=== PATIENT | female | born 1940 | race Caucasian/White ===

== ENCOUNTER → 2018-08-11 10:46 | Outpatient (CLI) | payer MEDICARE, SELFPAY ==
--- NOTE | 2018-08-11 10:48 | DI.RAD.S_ITS ---
PROCEDURE: XR LUMBAR SPINE MIN 4V INDICATIONS: Lower back pain TECHNIQUE: 4 views of the lumbar spine were acquired. COMPARISON: None. FINDINGS: Bones: 5 nonrib-bearing vertebrae are present. There is normal bony alignment. No vertebral body compression fractures. There is a moderately severe degree of degenerative disc disease along the middle and lower thirds of the lumbosacral spine, including disc height reduction and and ligamentous laxity when combined with facet osteoarthritis that is moderate to moderately severe along this region. This is most prominent at L4-5 where grade 1 anterolisthesis of L4 is present on L5. No suspicious bony lesions. Soft tissues: Overlying bowel gas pattern is normal. No suspicious soft tissue calcifications. Oblique images: No pars defects. IMPRESSION: Moderately severe degenerative disc disease and facet osteoarthritis over the entirety of the lumbosacral spine and most prominent over the middle and lower thirds. Facet osteoarthritis combines with degenerative disc disease to allow anterolisthesis grade 1 of L4 on L5 from ligamentous laxity. Dictated by: Irineo Barker M.D. on 08/11/2018 at 12:44 Approved by: Irineo Barker M.D. on 08/11/2018 at 12:46
== END ==
PROVIDERS: PCP Family Medicine; Visit Provider Physical Medicine & Rehabilitation
DX: M47.817 Spondylosis without myelopathy or radiculopathy, lumbosacral region (principal); M48.02 Spinal stenosis, cervical region; M54.5 Low back pain; M51.37 Other intervertebral disc degeneration, lumbosacral region; M47.816 Spondylosis without myelopathy or radiculopathy, lumbar region
CPT/HCPCS: 72110

== ENCOUNTER → 2018-12-26 13:44 | Outpatient (CLI) | payer MEDICARE, SELFPAY ==
--- NOTE | 2018-12-26 13:46 | DI.MRI.S_ITS ---
PROCEDURE: MR LUMBAR SPINE WO CON INDICATIONS: lower back pain TECHNIQUE: Noncontrast sagittal T1 spin echo and T2 fast echo, sagittal STIR, axial T1 and T2 fast spin echo through the lumbar spine. In cases with scoliosis, additional coronal T2 fast spin echo may be performed. COMPARISON: MR, LUMBAR SPINE W&W/O CONTRAST, 06/01/2006, 13:21. [facility], CR, XR LUMBAR SPINE MIN 4V, 08/11/2018, 10:52. FINDINGS: Image quality: Excellent. Alignment and Curvature: There is mild L4-L5 anterolisthesis. Bone Marrow: Multiple, benign intraosseous hemangiomas within T12, L1, L2, L4 and L5 vertebral bodies. Mild reactive endplate changes noted adjacent to the L4 and L5 discs. No acute vertebral body compression fractures. Spinal Cord: Conus medullaris terminates at the L1 level. Visualized cord demonstrates normal signal and size. Paraspinous Soft Tissues: No paravertebral masses. L1-L2: Loss of disc signal. No central stenosis. No neural foraminal narrowing. No neural compression. L2-L3: Loss of disc signal. Mild loss of disc height. Mild, diffuse disc bulge. Mild facet hypertrophy. Mild narrowing of the central canal. Mild bilateral neural foraminal narrowing. No neural compression. L3-L4: Loss of disc signal and height. Mild, diffuse disc bulge. Moderate bilateral facet hypertrophy. Mild ligamentum flavum hypertrophy. Mild to moderate narrowing of the central canal. Mild bilateral neural foraminal narrowing. No neural compression. L4-L5: Loss of disc signal. Mild, diffuse disc bulge. Severe bilateral facet hypertrophy. Moderate ligamentum flavum hypertrophy. Severe narrowing of the central canal with compression of the nerve roots of the cauda equina. Mild right and moderate left neural foraminal narrowing. L5-S1: Loss of disc signal. Minimal, diffuse disc bulge. Severe bilateral facet hypertrophy. No central stenosis. Mild bilateral neural foraminal narrowing. No neural compression. IMPRESSION: 1. Grade I L4-L5 degenerative spondylolisthesis. 2. Multilevel degenerative disc disease. 3. Multilevel facet arthropathy 4. Severe L4-L5 central canal stenosis with compression of the nerve roots of the cauda equina. Mild to moderate L3-L4 central canal narrowing. Mild L2-L3 central canal narrowing. 5. Mild right and moderate left L4-L5 neural foraminal narrowing. Mild bilateral L2-L3, L3-L4 and L5-S1 neural foraminal narrowing. Dictated by: Tammy Smith MD, PhD on 12/26/2018 at 16:23 Approved by: Tammy Smith MD, PhD on 12/26/2018 at 16:36
== END ==
PROVIDERS: PCP Family Medicine; Visit Provider Registered Nurse
DX: M54.5 Low back pain (principal); M43.16 Spondylolisthesis, lumbar region; M51.36 Other intervertebral disc degeneration, lumbar region; M47.816 Spondylosis without myelopathy or radiculopathy, lumbar region; M47.817 Spondylosis without myelopathy or radiculopathy, lumbosacral region; M48.061 Spinal stenosis, lumbar region without neurogenic claudication; M48.07 Spinal stenosis, lumbosacral region
CPT/HCPCS: 72148

== ENCOUNTER → 2019-12-17 11:00 | Outpatient (CLI) | payer MEDICARE, SELFPAY ==
[2019-12-19 08:27] LABS: COVID19 Sendout Not Detected (Not Detect)
== END ==
PROVIDERS: PCP Family Medicine; Visit Provider Physician Assistant
DX: Z11.59 Encounter for screening for other viral diseases (principal)
CPT/HCPCS: 87635

== ENCOUNTER 2019-12-20 06:41 | Inpatient (IN) | payer MEDICARE, SELFPAY ==
[2019-12-17 13:49] VITALS: BMI 33.7
[2019-12-20] VITALS (16 sets, daily range): BP systolic 102–144; BP diastolic 46–77; PULSE 60–95; RESP 4–18; TEMP 35.3–37.6; O2SAT 90–99; BMI 33.5
--- NOTE | 2019-12-20 | DI.RAD.S_ITS ---
PROCEDURE: XR LUMBAR SPINE 2-3V INDICATIONS: L4-5 TLIF TECHNIQUE: 2 operative views of the lumbar spine were acquired. COMPARISON: [facility], CR, XR LUMBAR SPINE MIN 4V, 08/11/2018, 10:52. FINDINGS: AP and lateral operative images demonstrate posterior shay and pedicle screw fixation at L4-L5 with interbody cage material. There is no radiographic evidence of complications. IMPRESSION: Operative imaging utilized for lower lumbar fusion surgery. No radiographic evidence of complications. Dictated by: Leroy Mahajan M.D. on 12/20/2019 at 10:53 Approved by: Leroy Mahajan M.D. on 12/20/2019 at 10:55
--- NOTE | 2019-12-20 07:08 | PM.PREOP ---
Pre-operative Note COVID-19 COVID-19 status: Negative Result date/Date tested (Pos, Neg/Pending): 12/17/19 Interval Note History & Physical reviewed/Exam performed by Physician: Yes Changes to H&P: No
[2019-12-20] MEDS: LACTATED RINGERS 1,000 ML 42 ML IV ×2 (07:42→08:52)
[2019-12-20] MEDS: CLINDAMYCIN 600 MG/50 ML PIGGYBACK 50 MG IV (07:53)
--- NOTE | 2019-12-20 08:21 | SUR.OPER ---
Prone on spine table, head in foam head support, padded chest and pelvic supports, gel pad at knees, lower legs supported by pillows; nipples, genitalia and toes free of pressure, arms secured on foam padded arm boards at <90 degrees abduction. Tape over blanket at thigh secured to table.
[2019-12-20] MEDS: THROMBIN (RECOMBINANT) 5,000 UNIT VIAL 5000 UNIT TOP (08:34)
[2019-12-20] MEDS: VANCOMYCIN 1,000 MG VIAL 1000 MG TOP (08:34)
[2019-12-20] MEDS: SODIUM CHLORIDE 0.9% 1,000 ML, GENTAMICIN 80 MG IRR ×2 (08:34→08:37)
[2019-12-20] MEDS: BUPIVACAINE 0.5% (PF) 4 ML, MORPHINE-PF 4 MG, BUTORPHANOL 1 MG, fentaNYL 100 MCG INJ (08:34)
--- NOTE | 2019-12-20 10:12 | P.OP_ITS ---
Operative Date/Time/Diagnoses Date of procedure: 12/20/19 Time of procedure: 10:12 Pre-op diagnosis: Lumbar stenosis with radiculopathy Lumbar spondylolisthesis Post-op diagnosis: same Procedure & Clinicians Procedure: L4-5 laminectomy with microscope L4-5 TLIF (posterior/posterior interbody fusion) with cage L4-5 screws Iliac crest bone graft aspirate Placement of epidural catheter Same procedure as scheduled: Yes Indications: [age] year old female with intractable pain from stenosis. They had failed conservative management and requested operative intervention. Risks and benefits of surgery were discussed and appropriate consents were obtained. Surgeon: See Victor Etl [employer] Architect: Fiona Price Anesthesia Type: General Operative Notes Findings: None Closure Type: primary Specimen(s): none sent Prosthetic devices, grafts, tissues, transplants, or devices: NuVasive MAS Reline screws Globus Rise cage Applied: catheter Estimated Blood Loss (mL): 20 Procedure in detail: The patient was brought to the operating room and intubated on the table. A time-out was performed. They were then rolled over to the well- padded Gary table in the prone position. Preoperative antibiotics were gi obdulio. The back was prepped and draped in the standard sterile fashion. Using fluoroscopy, a 4 cm longitudinal incision was made to the all marked right of the midline. We used Bovie to come down to and split the lumbodorsal fascia. Using fluoroscopy and monitoring, we then percutaneously placed Jamshidi needles down the pedicles of L4 and L5 on the right side. These were changed out to guidewires and then we tapped and then placed the NuVasive MAS Reline screw shanks. We then opened up the retractors and used Bovie to clear up the posterolateral gutter as well as medially along the lamina to the spinous processes. A bur was used to decorticate the transverse processes. We brought in the microscope. Using a combination of bur and Kerrison rongeurs, a laminectomy was performed from the right side. We cleared over past the midline and carefully depressed the dura until we were able to decompress the opposite side. We cleared out the neural foramen and resected the majority of the facet. This completed the laminectomy at L4-5. This was separate and distinct from the TLIF approach as we were decompressing the extremely stenotic central canal and the nerves. We then began working on the fusion portion. We carefully cleaned up the remainder of the foramen until we could easily retract the exiting root as well as clearing medially below the dura and expose the disc space. The disc was prepped with bipolar and then an annulotomy was performed. We performed a diskectomy using a combination of paddles, leif, pituitaries, and curettes. We distracted the disc using a paddle and locked the retractor in an open position. We then filled the disc space with Osteocel bone graft. We then placed the globus rise cage under fluoroscopy and then filled this in with more bone graft. The distraction on the retractor was released to compress down. This completed the posterior interbody fusion portion of the TLIF at L4-5. An epidural catheter was then prepped with 4 mL of 0.5% Marcaine, 1 mg Stadol, 4 mg Duramorph, and 100 mcg of fentanyl and placed in the spinal canal by carefully depressing the dura and advancing it 6 cm cephalad under the remaining lamina without resistance. We then placed the screw heads, shay, and locked down the set screws. The wound was copiously irrigated. A small stab incision was made over the PSIS. We used a Jamshidi needle to aspirate several mL of bone marrow from the pelvis. This was mixed with the remaining Osteocel and combined with all of the locally harvested bone graft and placed in the posterolateral gutter for the posterior fusion of the TLIF at L4- 5. The muscle fascia was closed. The epidural catheter was then injected without resistance and the catheter was pulled. We then went to the opposite side. Again using fluoroscopy, a 3 cm incision was made and Bovie was used to come down to split the fascia. Using neural monitoring and fluoroscopy, Jamshidi needles were advanced down the pedicles of L4 and L5 on the left side. These were switched over guidewires, tapped, and screws placed. We then placed a shay and locked the set screws on this side. The wound was irrigated. The fascia was closed. Vancomycin powder was placed in the wounds. The superficial and skin were closed. A sterile dressing was placed. The patient was then rolled over extubated and brought to recovery room without complications. Complications: none Post-operative Condition: stable Disposition: PACU Plan for aftercare: Admit. Up with physical therapy. Anticipate 1-2 days in the hospital.
[2019-12-20] MEDS: INSULIN REGULAR 100 UNIT/ML 3 ML VIAL IV ×2 (10:37→11:12)
[2019-12-20] MEDS: HYDROMORPHONE 2 MG INJ IV (10:42)
--- NOTE | 2019-12-20 11:14 | SUR.PHASEI ---
Dr. Gordon notified [facility] [place] [facility]. VVO to given another 4u regular IV.
[2019-12-20] MEDS: ONDANSETRON 4 MG/2 ML INJ IV ×2 (11:23→11:46)
--- NOTE | 2019-12-20 11:26 | SUR.PHASEI ---
patient c/o nausea, medicated with Zofran
--- NOTE | 2019-12-20 11:48 | SUR.PHASEI ---
patient c/o nausea again, medicated with Zofran.
--- NOTE | 2019-12-20 11:51 | SUR.PHASEI ---
Nausea improving per patient. Pain level 3/10 in back
--- NOTE | 2019-12-20 11:57 | SUR.PHASEI ---
Report given to Leroy.
--- NOTE | 2019-12-20 12:15 | PC.NURSE ---
Day shift: Pt on AC unit at approx 1200. Used slider board to transfer Pt from strethcer to bed and she tolerated well. Dressing on back is CDI. On 2L NC 97%. Denies any pain. C/o nausea. SCD's on. VS WNL. Call light in reach and bed alarm is on.
--- NOTE | 2019-12-20 12:24 | SUR.PHASEI ---
Patient transferred to the floor, with belongings bag, on pulse ox. VS stable. IV saline locked x2. Report given to Coltarian. Dressing checked with RN. Insulin given to RN.
[2019-12-20] MEDS: METOCLOPRAMIDE 10 MG/2 ML INJ IV (12:45)
[2019-12-20] MEDS: LACTATED RINGERS 1,000 ML 125 ML IV ×2 (12:54→22:16)
--- NOTE | 2019-12-20 15:22 | PT.IIE ---
Current Diagnoses Spondylolisthesis, lumbar region (12/20/19) Spinal stenosis, lumbar region with neurogenic claudication (12/20/19) Surgery Performed Operation Date: 12/20/19 07:45 Actual Procedures p L4-5 laminectomy and fusion w/bone graft - See Victor MD Surgical History (Last Updated 12/17/19 @ 14:19 by Angelica Gonzalez RN) History of bilateral carpal tunnel release (Acute) History of surgery (Acute) Hx of arthroscopy of left knee (Acute) Hx of bilateral cataract extraction (Acute) Status post appendectomy Status post hysterectomy Status post laparoscopic cholecystectomy Medical History (Last Updated 12/17/19 @ 14:26 by Angelica Gonzalez RN) Arthritis (Acute) Carpal tunnel syndrome (Chronic) Chicken pox (Resolved) Diabetes (Acute) Easy bruisability (Acute) Facet arthropathy, lumbosacral (Chronic) GERD (gastroesophageal reflux disease) (Acute) H/O renal calculi (Acute) History of CVA (cerebrovascular accident) (Inactive ~2017) HLD (hyperlipidemia) (Acute) HTN (hypertension) (Acute) Hypothyroidism (Acute) Lumbosacral spondylosis with radiculopathy (Chronic) Measles (Resolved) Melanoma (Acute ~2017) Mumps (Resolved) Skin cancer (Inactive ~2017) Stroke (Inactive ~2017) Type 2 diabetes mellitus (Chronic) Physical Therapy Inpatient Evaluation/Re-Eval M1 PT/OT-IP Prior Functional Status Start: 12/20/19 16:39 Freq: NEEDED Status: Active Protocol: Document 12/20/19 15:22 AB (Rec: 12/20/19 17:00 [id number]) Medical Review Prior Functional Status Medical History Reviewed Yes Communication able to answer question but drowsy Mobility and Gait daughter stated that pt is independent with all mobilities and ambulation without AD; pt was still driving prior to surgery Social History Household Members none Living Arrangements Apartment/Condo Number of Floors (Floors) One Floor Number of Stairs To Enter/Railing? pt lives alone but will be staying at her daughter's house. information about home set up is regarding daughter' s house no steps to enter Home Environment Standard Height Toilet,Tub/ Shower Home Equipment Front Wheel Walker Employment Status Retired M2 PT-IP Current Condition Start: 12/20/19 16:39 Freq: NEEDED Status: Active Protocol: Document 12/20/19 15:22 AB (Rec: 12/20/19 17:00 [id number]) Physical Therapy Current Condition Current Condition Evaluation Date 12/20/19 Treatment Diagnosis s/p L4-5 TLIF; difficulty in walking Onset Date 12/20/19 Precautions Lumbar Precautions Log Roll,No Twisting,Limit Bending,Lifting Restriction of 10 lbs,Gait Belt above Incisional Area M3 PT-IP Subjective Start: 12/20/19 16:39 Freq: NEEDED Status: Active Protocol: Document 12/20/19 15:22 AB (Rec: 12/20/19 17:00 [email or web address]) Subjective Physical Therapy Visit Type Type Initial Evaluation Visit Start Time 15:22 Visit Stop Time 16:00 Total Visit Minutes 38 Number of CHRONOMETER ASSEMBLER Visits 0 Physical Therapy Visit Comments Patient Comments pt is agreeable to PT; daughter in room with pt Therapy Pain Assessment Pain When Pain Assessed At Rest Pain Present Pain Present Pain Reported Location Back Intensity 5 Scale Used Numeric (0 - 10) Pain Management Techniques Distraction,Re-positioning, Timing of Activity with Medications M4 PT-IP Mobility and Gait Start: 12/20/19 16:39 Freq: NEEDED Status: Active Protocol: Document 12/20/19 15:22 AB (Rec: 12/20/19 17:00 [id number]) PT-Bed Mobility Assessment Rolling Type of Rolling Log Rolling Level of Assist Moderate Assistance Supine to Sit Supine to Sit Moderate Assistance,Bedrails Sit to Supine Sit to Supine Moderate Assistance,Bedrails PT-Transfer Assessment Sit to and From Stand Sit to and from Stand Minimal Assistance,1 Person Assistance,Use of Upper Extremities Equipment Transfer Assistive Device Gait Belt,Front Wheeled Walker Orthotic/Prosthetic Devices or Brace: No Comments Mobility Comments educated pt on back precautions and log roll bed mobility. requires constant cues to stay awake and to adhere to precautions. completed supine to sit mod A and cues for techniques. pt used bed rail to assist. pt was able to sit on EOB SBA. completed sit to stand min A and cues and ambulated ~ 6 ft forward and then backwards back to bed. c/o nausea. BP before mobility: 123/61 and after mobility 121/58. pt completed sit to supine log roll mod A and max cues. positioned in bed. call light and table placed within reach . O2 sat 91% to 94% during tx session with/without O2 on. tends to go down when in bed and asleep, therefore O2 put back on pt and nurse agreed. Left pt in room with her daughter. Gait Assessment Gait Gait Assistance Required: Minimum Assistance Distance (Feet) 12 Able to Maintain Weight Bearing Status Yes During Gait Assistive Devices Assistive Device Gait Belt,Front Wheeled Walker Orthotic/Prosthetic Devices or Brace: No Gait Deviations General Gait Pattern Antalgic,Decreased Stride Length,Decreased Feet Clearance Factors Limiting Gait Function Factors Limiting Gait Function Decreased Activity Tolerance, Decreased Strength,Difficulty Following Directions,Limited Range of Motion,Pain,Poor Balance,Poor Safety Awareness Comments Gait Comments pls refer to mobility section for details PT-Balance Assessment Sitting Balance and Reactions Static Sitting Balance Ability Good Dynamic Sitting Balance Ability Good Standing Balance and Reactions Static Standing Balance Ability Fair Dynamic Standing Balance Ability Fair Device Used FWW M5 PT-IP Objective Assessments Start: 12/20/19 16:39 Freq: NEEDED Status: Active Protocol: Document 12/20/19 15:22 AB (Rec: 12/20/19 17:00 [email or web address] Orientation Orientation/Cognition Level of Alertness Alert Comments alert but sleepy and need cues to stay awake but able to stay awake during ambulation Gross Range of Motion Lower Extremity ROM Assessment Within Functional Limits Strength Lower Extremity Strength Assessment Right Impaired Hip 3+/5 Knee 3+/5 Coordination Assessment Gross Coordination Gross Coordination WNL Sensation Assessment Sensation Gross Sensation WNL Muscle Tone Muscle Tone WNL Yes M6 PT-IP Treatment Start: 12/20/19 16:39 Freq: NEEDED Status: Active Protocol: Document 12/20/19 15:22 AB (Rec: 12/20/19 17:00 AB [email or web address]) Physical Therapy Treatment Education Education Provided Precautions,Weight Bearing Status,Post-Op Packet,Safety M7 PT-IP Assessment and Plan Start: 12/20/19 16:39 Freq: NEEDED Status: Active Protocol: Document 12/20/19 15:22 AB (Rec: 12/20/19 17:00 AB [email or web address]) PT Summary Assessment and Plan Potential Rehabilitation Potential Good Status of Condition at Evaluation Evolving Summary Impairments Pain,ROM,Strength,Balance, Coordination,Sensation,Tone, Cognition,Bed Mobility, Transfers,Gait,Activity Tolerance Assessment Summary pt s/p L4-5 TLIF and just had surgery this morning. c/o nausea during mobility and unable to ambulate much. pt will likely progress during hospital stay. pt plans to go home and her daughters will assist her. will conduct caregiver training when appropriate. will continue to assess progress. Goals Bed Mobility Goal Standby Assistance Transfer Goal Standby Assistance,Front Wheeled Walker Gait Goal Standby Assistance,Front Wheel Walker Gait Distance 150 Days to Meet Goals 5 Frequency of Treatment Frequency Of Treatment Twice a Day Treatment Plan Physical Therapy Treatment Plan Bed Mobility Training,Transfer Training,Gait Training, Therapeutic Exercise,Balance Retraining,Post Op Education, Discharge Planning,Hot or Cold Pack,Neuromuscular Re-ed, Coordination Retraining Recommendations To Nursing Amount of Assist Needed 1 Person Assist Discharge Recommendations PT Discharge Recommendations Home with Assistance Transportation Needs at Discharge Private Vehicle
[2019-12-20] MEDS: CLINDAMYCIN 900 MG/50 ML PIGGYBACK 50 MG IV (16:43)
[2019-12-20] MEDS: INSULIN ASPART 100 UNIT/ML INSULN PEN SUBCUT ×2 (16:46→21:03)
[2019-12-20] MEDS: INSULIN DETEMIR 100 UNIT/ML INSULN.PEN 10 UNIT SUBCUT (21:01)
[2019-12-20] MEDS: CELECOXIB 200 MG CAPSULE PO (21:05)
[2019-12-20] MEDS: ATORVASTATIN 20 MG TABLET 40 MG PO (21:05)
[2019-12-20] MEDS: glipiZIDE 5 MG TABLET 10 MG PO (21:05)
[2019-12-20] MEDS: SENNOSIDES 8.6 MG TABLET 17.2 MG PO (21:05)
[2019-12-20] MEDS: GABAPENTIN 300 MG CAPSULE PO (21:05)
[2019-12-20] MEDS: METOPROLOL IR 25 MG TABLET 12.5 MG PO (21:06)
[2019-12-20] MEDS: DOCUSATE 100 MG CAPSULE PO (21:08)
[2019-12-20] MEDS: NORTRIPTYLINE 10 MG CAPSULE 20 MG PO (21:11)
[2019-12-21 00:05] VITALS: BP 127/63; PULSE 98; RESP 18; O2SAT 95
[2019-12-21] MEDS: HYDROCODONE/ACET 5/325 TABLET 1 TAB PO ×3 (00:05→16:41)
[2019-12-21] MEDS: CLINDAMYCIN 900 MG/50 ML PIGGYBACK 50 MG IV (00:06)
[2019-12-21 04:35] VITALS: BP 101/55; PULSE 98; RESP 18; TEMP 37.6; O2SAT 94
[2019-12-21] MEDS: LEVOTHYROXINE 100 MCG TABLET PO (05:45)
[2019-12-21 05:52] LABS: Hemoglobin 9.9 g/dL (12.0-16.0)
[2019-12-21] MEDS: hydrOXYzine pamoate 25 MG CAPSULE PO ×2 (06:40→11:28)
--- NOTE | 2019-12-21 07:44 | PM.PNPO.1 ---
Subjective Subjective Date Patient Seen: 12/21/19 Time Patient Seen: 07:45 Interval history: She is doing much better. No more nausea. Legs feel fine. Good pain control with just 1 hydrocodone. Exam Vital Signs (past 8 hours): - 12/21/19 00:05 12/21/19 04:35 Temperature 99.7 F H Pulse Rate 98 H 98 H Respiratory Rate 18 18 Blood Pressure 127/63 101/55 L Pulse Oximetry 95 94 Oxygen Delivery Method Room Air Oxygen Flow Rate 2 Const Orientation: alert and oriented x3 Back/Spine/Pelvis Other: CDI. 5/5 motor both lower extremities. Objective Labs Result Diagrams: 12/21/19 05:28 Labs: Laboratory Results - last 24 hr 12/21/19 05:28 Hgb 9.9 L Hct 29.0 L Assessment & Plan Post-op Postoperative Procedures: Procedures Operation Date: 12/20/19 07:45 Actual Procedures Side Surgeon p L4-5 laminectomy and fusion w/bone graft See Victor MD she is doing very well. Mobilize today with physical therapy. Anticipate discharge tomorrow or Tuesday.
[2019-12-21] MEDS: HYDROMORPHONE 0.5 MG INJ IV (07:55)
[2019-12-21] MEDS: LACTATED RINGERS 1,000 ML 125 ML IV (08:00)
[2019-12-21 08:30] VITALS: BP 124/68; PULSE 97; RESP 20; TEMP 37.3; O2SAT 95
--- NOTE | 2019-12-21 09:15 | PT.IPTN ---
Current Diagnoses Spondylolisthesis, lumbar region (12/20/19) Spinal stenosis, lumbar region with neurogenic claudication (12/20/19) Surgery Performed Operation Date: 12/20/19 07:45 Actual Procedures p L4-5 laminectomy and fusion w/bone graft - See Victor MD Physical Therapy Treatment Note M2 PT-IP Current Condition Start: 12/20/19 16:39 Freq: NEEDED Status: Active Protocol: Document 12/20/19 15:22 AB (Rec: 12/20/19 17:00 AB [id number]) Physical Therapy Current Condition Current Condition Evaluation Date 12/20/19 Treatment Diagnosis s/p L4-5 TLIF; difficulty in walking Onset Date 12/20/19 Precautions Lumbar Precautions Log Roll,No Twisting,Limit Bending,Lifting Restriction of 10 lbs,Gait Belt above Incisional Area M3 PT-IP Subjective Start: 12/20/19 16:39 Freq: NEEDED Status: Active Protocol: Document 12/21/19 09:15 AB (Rec: 12/21/19 11:35 AB [id number]) Subjective Physical Therapy Visit Type Type Treatment Note Visit Start Time 09:15 Visit Stop Time 09:48 Total Visit Minutes 33 Number of DISTILLATION OPERATOR HELPER Visits 0 Physical Therapy Visit Comments Patient Comments pt is agreeable to do PT Therapy Pain Assessment Pain When Pain Assessed At Rest Pain Present Pain Present Pain Reported Location Back Intensity 6 Scale Used Numeric (0 - 10) Pain Management Techniques Apply Cold,Distraction,Re- positioning,Timing of Activity with Medications M4 PT-IP Mobility and Gait Start: 12/20/19 16:39 Freq: NEEDED Status: Active Protocol: Document 12/21/19 09:15 AB (Rec: 12/21/19 11:35 AB [id number]) PT-Bed Mobility Assessment Rolling Type of Rolling Log Rolling Level of Assist Maximal Assistance Supine to Sit Supine to Sit Maximum Assistance,1 Person Assistance PT-Transfer Assessment Sit to and From Stand Sit to and from Stand Contact Guard Assistance, Minimal Assistance,1 Person Assistance,Use of Upper Extremities Equipment Transfer Assistive Device Gait Belt,Front Wheeled Walker Orthotic/Prosthetic Devices or Brace: No Transfers Transfer Destination Chair Transfer Technique ambulated using FWW Transfer Ability Level of Assist Minimal Assistance,1 Person Assistance,Use of Upper Extremities Comments Mobility Comments reviewed back precautions with pt and log roll bed mobility. complete supine to sit log roll bed mobility max A and max cues. pt was able to sit on EOB SBA. completed sit to stand min A and cues and pt ambulated in room ~ 50 ft. agreed to sit up on chair and ambulated to the chair using FWW. educated on sit <>stand techniques and demonstrated from chair requiring CGA and cues. positioned pt on chair. call light and table placed within reach. required cues for deep breathing as pt's O2 sat tends to decrease to ~ 85-87% with activity but able to recover to 90% in ~ 10 sec Gait Assessment Gait Gait Assistance Required: Minimum Assistance Distance (Feet) 50 Able to Maintain Weight Bearing Status Yes During Gait Assistive Devices Assistive Device Gait Belt,Front Wheeled Walker Orthotic/Prosthetic Devices or Brace: No Gait Deviations General Gait Pattern Antalgic,Decreased Stride Length,Decreased Feet Clearance Factors Limiting Gait Function Factors Limiting Gait Function Decreased Activity Tolerance, Pain,Poor Balance,Poor Safety Awareness,Respiratory Distress Comments Gait Comments pls refer to mobility section for details M5 PT-IP Objective Assessments Start: 12/20/19 16:39 Freq: NEEDED Status: Active Protocol: Document 12/20/19 15:22 AB (Rec: 12/20/19 17:00 AB [id number]) Orientation Orientation/Cognition Level of Alertness Alert Comments alert but sleepy and need cues to stay awake but able to stay awake during ambulation Gross Range of Motion Lower Extremity ROM Assessment Within Functional Limits Strength Lower Extremity Strength Assessment Right Impaired Hip 3+/5 Knee 3+/5 Coordination Assessment Gross Coordination Gross Coordination WNL Sensation Assessment Sensation Gross Sensation WNL Muscle Tone Muscle Tone WNL Yes M6 PT-IP Treatment Start: 12/20/19 16:39 Freq: NEEDED Status: Active Protocol: Document 12/21/19 09:15 AB (Rec: 12/21/19 11:35 AB [id number]) Physical Therapy Treatment Education Education Provided Precautions,Safety M7 PT-IP Assessment and Plan Start: 12/20/19 16:39 Freq: NEEDED Status: Active Protocol: Document 12/21/19 09:15 AB (Rec: 12/21/19 11:35 AB [id number]) PT Summary Assessment and Plan Potential Rehabilitation Potential Good Summary Impairments Pain,ROM,Strength,Balance, Coordination,Sensation,Bed Mobility,Transfers,Gait, Activity Tolerance Progress Towards Goals Slow Progress due to Pain,Slow Progress due to Activity Tolerance Assessment Summary pt requiring min A with mobility and plans to go home with family to assist her. daughter in room during PT session and agreed to do caregiver training and set up at ~ 1pm/130 pm today. will continue to assess for safe d/ c. Goals Bed Mobility Goal Standby Assistance Transfer Goal Standby Assistance,Front Wheeled Walker Gait Goal Standby Assistance,Front Wheel Walker Gait Distance 150 Days to Meet Goals 5 Frequency of Treatment Frequency Of Treatment Twice a Day Treatment Plan Physical Therapy Treatment Plan Bed Mobility Training,Transfer Training,Gait Training, Therapeutic Exercise,Balance Retraining,Post Op Education, Discharge Planning,Hot or Cold Pack,Neuromuscular Re-ed, Coordination Retraining Recommendations To Nursing Amount of Assist Needed 1 Person Assist Discharge Recommendations PT Discharge Recommendations Home with Assistance Transportation Needs at Discharge Private Vehicle
[2019-12-21] MEDS: DOCUSATE 100 MG CAPSULE PO ×2 (10:08→20:41)
[2019-12-21] MEDS: CELECOXIB 200 MG CAPSULE PO ×2 (10:09→20:41)
[2019-12-21] MEDS: lisinopriL 20 MG TABLET 40 MG PO (10:09)
[2019-12-21] MEDS: glipiZIDE 5 MG TABLET 10 MG PO ×2 (10:09→20:42)
[2019-12-21] MEDS: METOPROLOL IR 25 MG TABLET 12.5 MG PO ×2 (10:09→20:42)
[2019-12-21] MEDS: PANTOPRAZOLE 20 MG TABLET PO (10:10)
[2019-12-21] MEDS: ASPIRIN EC 325 MG TABLET PO (10:10)
[2019-12-21] MEDS: AMLODIPINE 5 MG TABLET 10 MG PO (10:10)
--- NOTE | 2019-12-21 10:13 | OT.IP.EVAL ---
Current Diagnoses Spondylolisthesis, lumbar region (12/20/19) Spinal stenosis, lumbar region with neurogenic claudication (12/20/19) Surgery Performed Operation Date: 12/20/19 07:45 Actual Procedures p L4-5 laminectomy and fusion w/bone graft - See Victor MD Past Medical History (Last Updated 12/17/19 @ 14:26 by Angelica Gonzalez RN) Arthritis (Acute) Carpal tunnel syndrome (Chronic) Chicken pox (Resolved) Diabetes (Acute) Easy bruisability (Acute) Facet arthropathy, lumbosacral (Chronic) GERD (gastroesophageal reflux disease) (Acute) H/O renal calculi (Acute) History of CVA (cerebrovascular accident) (Inactive ~2017) HLD (hyperlipidemia) (Acute) HTN (hypertension) (Acute) Hypothyroidism (Acute) Lumbosacral spondylosis with radiculopathy (Chronic) Measles (Resolved) Melanoma (Acute ~2017) Mumps (Resolved) Skin cancer (Inactive ~2017) Stroke (Inactive ~2017) Type 2 diabetes mellitus (Chronic) Surgical History (Last Updated 12/17/19 @ 14:19 by Angelica Gonzalez RN) History of bilateral carpal tunnel release (Acute) History of surgery (Acute) Hx of arthroscopy of left knee (Acute) Hx of bilateral cataract extraction (Acute) Status post appendectomy Status post hysterectomy Status post laparoscopic cholecystectomy Occupational Therapy Inpatient Evaluation/Re-Eval M1 PT/OT-IP Prior Functional Status Start: 12/20/19 16:39 Freq: NEEDED Status: Active Protocol: Document 12/21/19 12:07 CGR (Rec: 12/21/19 12:37 CGR [email or web address]) Medical Review Prior Functional Status Medical History Reviewed Yes Communication Pt is an effective verbal communicator. Mobility and Gait daughter stated that pt is independent with all mobilities and ambulation without AD; pt was still driving prior to surgery Activities of Daily Living and IADL's Pt was IND for all ADLs Prior Functional Level (Other details) Pt lives alone in a house in [place] but plans to discharge to her daughters home. Information below is for her daughters home. Social History Household Members none Living Arrangements Apartment/Condo Number of Floors (Floors) One Floor Number of Stairs To Enter/Railing? pt lives alone but will be staying at her daughter's house. information about home set up is regarding daughter' s house no steps to enter Home Environment Standard Height Toilet,Tub/ Shower Home Equipment Front Wheel Walker,Four Wheel Walker,Shower Seat with Backrest,Hand Held Shower Employment Status Retired M2 OT-IP Current Condition Start: 12/21/19 12:06 Freq: Status: Active Protocol: Document 12/21/19 12:07 CGR (Rec: 12/21/19 12:37 CGR [email or web address]) Occupational Therapy Current Condition Current Condition Evaluation Date 12/21/19 Treatment Diagnosis L4-5 TLIF Diagnosis Onset Date 12/20/19 Post Operative Precautions Lumbar Precautions Log Roll,No Twisting,Limit Bending,Lifting Restriction of 10 lbs,Gait Belt above Incisional Area M3 OT- IP Subjective and Pain Start: 12/21/19 12:06 Freq: Status: Active Protocol: Document 12/21/19 12:07 CGR (Rec: 12/21/19 12:37 CGR [email or web address]) OT- Subjective Occupational Therapy Visit Type Type Initial Evaluation Visit Start Time 09:49 Visit Stop Time 10:13 Total Visit Minutes 24 Notes Pts daughter present throughout session. OT Pain Assessment Pain When Pain Assessed At Rest Pain Present Pain Present Pain Reported Location Back Intensity 4 Scale Used Numeric (0 - 10) Management Techniques Apply Cold,Distraction, Modification of Treatment,Re- positioning,Timing of Activity with Medications M4 OT- IP ADL's Start: 12/21/19 12:06 Freq: Status: Active Protocol: Document 12/21/19 12:07 CGR (Rec: 12/21/19 12:37 CGR [email or web address]) OT [id number] Comments OT Self-Feeding Comments Not performed OT ADL-Grooming General Evaluation Grooming Ability Standby Assistance Areas Needing Assistance Retrieving/Set-up of Grooming Items,Face Washing Comments OT Grooming Comments standing at sink OT ADL-Oral Care General Eval Oral Care Ability Standby Assistance Areas of Assistance Retrieving/Set-Up of Items Comments Oral Care Comments standing at sink OT ADL-Dressing Comments OT Dressing Comments Not performed, will need education on LB dressing. OT ADL-Toileting General Evaluation Toileting Ability Standby Assistance Comments OT Toileting Comments Pt still with alvarado but simulated toileting with SBA. OT ADL-Bathing Comments OT Bathing Comments Not performed M5 OT- IP IADL's Start: 12/21/19 12:06 Freq: Status: Active Protocol: Document 12/21/19 12:07 CGR (Rec: 12/21/19 12:37 CGR [email or web address]) OT-Instrumental Activities of Daily Living Deficits IADL Deficits Identified No Deficits Home Safety Awareness Awareness of Need for Assistance at Home Good Awareness Ability to Problem Solve Emergency Able to Problem Solve Situations Medication Management Medication Management No Deficits Identified Money Management Money Management No Deficits Identified Meal Preparation Meal Preparation Caregiver Provides Assist Code And Test Clerk Code And Test Clerk Caregiver Provides Assist Driving Driving Comments Pt understands she should not be driving till MD approves. M6 OT- IP Functional Cognition Start: 12/21/19 12:06 Freq: Status: Active Protocol: Document 12/21/19 12:07 CGR (Rec: 12/21/19 12:37 CGR [email or web address]) Cognitive Factors Limiting Selfcare Function Cognitive Ability Level of Alertness Alert Patient Orientation Name,Age,Birthday,Month,Date, Year,Day of Week,Place, Situation Attention Span Ability Capable of Focused Attention, Capable of Sustained Attention Ability to Follow Commands Able to Follow Multi-Step Commands OT- Vision and Hearing OT- Hearing Assessment OT- Hearing Assessment WFL OT- Vision Assessment Visual Acuity WFL Visual Attentiveness WFL Occular Pursuits WFL Visual Convergence WFL Vision Assessment Comments Pt wears bifocals M7 OT- IP Mobility and Balance Start: 12/21/19 12:06 Freq: Status: Active Protocol: Document 12/21/19 12:07 CGR (Rec: 12/21/19 12:37 CGR [email or web address]) OT-Transfer Assessment Sit to and From Stand Sit to and from Stand Standby Assistance Transfers Transfer Ability Standby Assistance Technique Transfer Destination Chair,Toilet Transfer Technique Stand Step Pivot Devices Transfer Assistive Devices Gait Belt,Front Wheeled Walker Comments Mobility Comments mobility in the room and bathroom OT- Balance Assessment Sitting Balance and Reactions Static Sitting Balance Ability Good Dynamic Sitting Balance Ability Fair M8 OT- IP Objective Assessments Start: 12/21/19 12:06 Freq: Status: Active Protocol: Document 12/21/19 12:07 CGR (Rec: 12/21/19 12:37 CGR [email or web address]) OT Gross Range of Motion Upper Extremity Range of Motion Assessment Within Functional Limits OT Strength Upper Extremity Strength Assessment Within Functional Limits Comments Strength Comments grossly 4/5 OT- Coordination Assessment Upper Extremity Finger to Nose Test Within Functional Limits Finger Tapping Test Within Functional Limits OT-Muscle Tone Assessment Muscle Tone WNL Yes OT Sensation Assessment Edema Edema Absent M9 OT- IP Assessment and Plan Start: 12/21/19 12:06 Freq: Status: Active Protocol: Document 12/21/19 12:07 CGR (Rec: 12/21/19 12:37 CGR [email or web address]) OT Summary Assessment and Plan Potential Rehabilitation Potential Excellent Analytic Complexity at Evaluation Low Summary OT Impairments Pain,Balance,Functional Mobility,Dressing,Toileting, Bathing,Toilet Transfers, Shower Transfers,Activity Tolerance Progress Towards Goals Slow Progress due to Pain Assessment Summary Pt presents as a low complexity evaluation s/p admit for L4-5 TLIF. Pt is planned for d/c home with her daughter . Pt is progressing with therapy and will benefit from LB dressing and shower training prior to discharge. Goals Dressing Goal Independent,Flatwork Catcher,Sock Aid Toileting Goal Independent Bathing Goal Independent,Hand Held Shower Sprayer Toilet Transfer Goal Independent Shower Transfer Goal Independent,Shower Chair Days to Meet Goals 5 Frequency of Treatment Frequency Of Treatment Once a Day Treatment Plan OT Treatment Plan ADL Training,Functional Mobility,Patient/Family Education,Discharge Planning Other Treatment Recommendations and Next shower and LB dressing. Treatment Focus Discharge Recommendations OT Discharge Recommendations Home with Assistance Other Discharge Recommendations Pt plans to discharge home with her daughter. Home Equipment Needs Grab bars in the bathroom. Transportation Needs at Discharge Private Vehicle
[2019-12-21] MEDS: HYDROCODONE/ACET 5/325 TABLET 2 TAB PO ×2 (11:28→20:42)
[2019-12-21 11:32] VITALS: BP 141/68; PULSE 100; RESP 18; O2SAT 90
[2019-12-21] MEDS: INSULIN ASPART 100 UNIT/ML INSULN PEN SUBCUT ×3 (12:34→20:39)
--- NOTE | 2019-12-21 13:40 | CM.DANOTE ---
Addendum entered by Megan Padron LPN 12/21/19 13:53: Met briefly with pt and her daughter Selena as they were in middle of a caregiver training session with PT Cornelia. Selena helps clarify the d/c plan. Pt will d/c to her daughter Esther's home when stable for same. Selena will help train her sister and the 2 of them will take turns being with pt in Esther's home until their mother is ready to return to her own apartment. Dr. Victor was in today. Anticipates pt will be ready for d/c as above sometime this weekend. DCP team will be following. Original Note: Discharge Planning/Care Management DCP: assessment: case received, EMR reviewed. Discussed in Team Rounds. PT/OT are ordered. Pt is an 79 year old female who admitted yesterday for a scheduled spinal/lumbar surgery. Surgeon: Dr. Norwood PCP: listed as Arian Frias [facility] Admission status: INPT: confirmed by UR MARLEY Dickinson. A check in now of the therapy notes shows that pt is on pathway for a d/c to her daughter Selena's home in [facility] when ready to d/c from the hospital. Will check in now with pt for introduction of self and role. Advanced directive, confirm from FAMILY Start: 12/20/19 12:37 Freq: Q24H Status: Complete Protocol: Document 12/20/19 12:41 YAD (Rec: 12/20/19 12:42 YAD [id number]) Advance Directive, confirm on record Time 12:42 Person contacted Pt Copy received No Document 12/21/19 13:06 YAD (Rec: 12/21/19 13:06 YAD [id number]) Advance Directive, confirm on record Time 12:42 Person contacted Pt Copy received No Time 13:06 Person contacted patient Copy received No CM Discharge Assessment Start: 12/21/19 13:38 Freq: Status: Active Protocol: Document 12/21/19 13:39 ITV (Rec: 12/21/19 13:40 ITV [id number]) Discharge Planning Assessment Advance Directives? Yes Advance Directives on File No History Provided By Medical Record Prior Living Arrangements Apartment/Condo Household Members none Type of transporation used prior to Drives own vehicle admit Independent with ADL's Yes Is patient alert and oriented? Yes Review Status In Process Pre-Anesthesia Assessment Start: 12/17/19 13:49 Freq: Status: Active Protocol: Document 12/17/19 13:49 [facility] (Rec: 12/17/19 14:37 CAB [id number]) Pre-Anesthesia Assessment Patient Information Reviewed Via Phone Assessment Assessment Completed With Patient H&P Completed Within 30 Days Yes Diagnostic Results BMP/CMP,CBC,EKG Comment Outside labs/EKG scanned, COVID screen @ [facility] 12/17/19 Pending Primary Care Provider Arian Frias Medical Clearance Received Yes Seen Specialist in Last 12 Months Yes Specialist Seen Orthopedist Comment PCP visit 11/27/19 scanned Primary Language Algerian Paediatric Physiotherapist Required No Height 149.86 cm Weight 75.75 kg Body Mass Index (BMI) 33.7 Hearing Ability Normal Visual Assist Glasses Dentition Type Teeth, Natural Present,Teeth, Missing Barriers to Learning None Hx Anesthesia Reactions Yes: Nausea Hx Family Anesthesia Reaction No Hx Malignant Hyperthermia No Hx Blood Transfusions Yes: s/p hemorhhage r/t first vaginal delivery Hx Blood Transfusion Reaction No Anesthesia Review Requested No alcohol intake former Smoking Status Never smoker Substance Use Type does not use Pain Present Pain Reported Musculoskeletal Symptoms Abnormal Gait,Back Pain, Difficulty Walking,Muscle Weakness,Neck Pain,Radiating Pain into Limb History of Falling (Recent or History of Yes ) Patient is completely paralyzed or No completely immobile Mental Status Oriented to own ability Is patient on oxygen? No Does patient have AGUILAR/SOB No Hx Sleep Apnea No Currently Taking a Beta Rebecca Yes: Metoprolol Can You Climb a Flight of Stairs Without No SOB Hx Chest Pain No Hx SOB No Hx Syncope or Dizziness No Anti-Coagulant Therapy Yes: ASA 325mg daily-advised to hold 7 days per Surgeon Has a Presiding Steward No Cardiac Testing No Hx Pacemaker/ICD No Pacemaker Rep Required? No Cardiac Clearance Received Not Applicable Diet Type At Home Regular dysphagia Yes: Popcorn Gastrointestinal Symptoms Constipation,Diarrhea,Reflux Urinary Catheter Present No Hx Urinary Self Catheterization No Diabetes Yes HgbA1C 7.2 Comment A1c per pt, less than one month ago Patient No Lactating No Hx Drug Resistant Organism No Presence of External or Internal Medical Yes: Ivan eye lens Devices Have you had any close contact with No someone diagnosed with COVID-19? Marital Status / Lives With none Prior Living Arrangements Apartment/Condo Support System Child/Children Does the Patient Have Assistance After Yes: Pt will stay with Surgery daughter at [place] for assistance Patient Discharge Plan Description Other Comment Pt 2-3 day length of stay per surgeon Feels Safe in Current Environment Yes Been Physically Hurt or Threatened By a No Person in Current Environment Do you have thoughts of harming yourself None or others? Are you currently considering suicide? No Do you have a plan to hurt yourself or No Plan others? Do You Have Any Spiritual Beliefs That No May Affect Your HC Choices? Do You Have Any Cultural Practices That No May Affect Your HC Choices? Comment Maximilian Who Can We Speak to About Patient's Care Family, friends Identifying Code for Release of Patient Declines to issue Information Health Care Proxy/Next of Kin Selena (daughter) Health Care Proxy Emergency Contact Name Selena (daughter) Emergency Contact Advance Directives? Yes Advance Directives on File No Requested Patient Bring Advanced Yes Directives DOS Power of Home Health Nurse Licensed Practical No Power of Home Health Nurse Licensed Practical Name Selena (deangelo) Power of Home Health Nurse Licensed Practical PAC Instructions Diabetes instructions,Durable medical equipment,Medications to take/avoid,Nasal antibiotic ,No ETOH/petroleum product on skin DOS,NPO,Post-op transportation,Pre-surgical wash,Sensory aids,Sturdy shoes /comfortable clothes,Do not bring valuables and remove jewelry
--- NOTE | 2019-12-21 13:43 | PT.IPTN ---
Current Diagnoses Spondylolisthesis, lumbar region (12/20/19) Spinal stenosis, lumbar region with neurogenic claudication (12/20/19) Surgery Performed Operation Date: 12/20/19 07:45 Actual Procedures p L4-5 laminectomy and fusion w/bone graft - See Victor MD Physical Therapy Treatment Note M2 PT-IP Current Condition Start: 12/20/19 16:39 Freq: NEEDED Status: Active Protocol: Document 12/20/19 15:22 AB (Rec: 12/20/19 17:00 AB [id number]) Physical Therapy Current Condition Current Condition Evaluation Date 12/20/19 Treatment Diagnosis s/p L4-5 TLIF; difficulty in walking Onset Date 12/20/19 Precautions Lumbar Precautions Log Roll,No Twisting,Limit Bending,Lifting Restriction of 10 lbs,Gait Belt above Incisional Area M3 PT-IP Subjective Start: 12/20/19 16:39 Freq: NEEDED Status: Active Protocol: Document 12/21/19 13:43 AB (Rec: 12/21/19 15:28 AB [id number]) Subjective Physical Therapy Visit Type Type Treatment Note Visit Start Time 13:43 Visit Stop Time 14:12 Total Visit Minutes 29 Number of COMMERCIAL MAKEUP ARTIST Visits 0 Physical Therapy Visit Comments Patient Comments pt is agreeable to do PT Therapy Pain Assessment Pain When Pain Assessed At Rest Pain Present Pain Present Pain Reported Location Back Intensity 6 Scale Used Numeric (0 - 10) Pain Management Techniques Modification of Treatment,Re- positioning,Timing of Activity with Medications M4 PT-IP Mobility and Gait Start: 12/20/19 16:39 Freq: NEEDED Status: Active Protocol: Document 12/21/19 13:43 AB (Rec: 12/21/19 15:28 AB [id number]) PT-Bed Mobility Assessment Rolling Type of Rolling Log Rolling Level of Assist Minimal Assistance Supine to Sit Supine to Sit Maximum Assistance,1 Person Assistance Sit to Supine Sit to Supine Minimal Assistance PT-Transfer Assessment Sit to and From Stand Sit to and from Stand Contact Guard Assistance,1 Person Assistance,Use of Upper Extremities Equipment Transfer Assistive Device Gait Belt,Front Wheeled Walker Orthotic/Prosthetic Devices or Brace: No Transfers Transfer Destination Bed Transfer Technique ambulated Transfer Ability Level of Assist Contact Guard Assistance,1 Person Assistance,Use of Upper Extremities Comments Mobility Comments pt using the toilet with NAC in room. PT took over. ambulated from the toilet using FWW to the sink CGA and completed handwashing SBA. ambulated to the chair using FWW CGA. caregiver training conducted. educated daughter on how to use safety belt and how to assist pt. daughter was able to put the safety belt on the pt. assisted pt with transfers and ambulation using FWW towards the bed. pt completed bed mobility log roll supine<>sit with PT cueing and assisting first and then repeated again with daughter assisting and was able to assist pt safely. pt agreed to ambulate more and completed ambulation in the hallway using FWW CGA ~ 75 ft. pt requested to go back to bed. completed sit to supine with daughter assisting. positioned pt in bed. educated pt and daughter on proper bed positioning. call light and table placed within reach. Gait Assessment Gait Gait Assistance Required: Contact Guard Assist Distance (Feet) 75 Able to Maintain Weight Bearing Status Yes During Gait Assistive Devices Assistive Device Gait Belt,Front Wheeled Walker Orthotic/Prosthetic Devices or Brace: No Factors Limiting Gait Function Factors Limiting Gait Function Decreased Activity Tolerance, Pain,Poor Balance Comments Gait Comments pls refer to mobility section for details M5 PT-IP Objective Assessments Start: 12/20/19 16:39 Freq: NEEDED Status: Active Protocol: Document 12/20/19 15:22 AB (Rec: 12/20/19 17:00 AB [id number]) Orientation Orientation/Cognition Level of Alertness Alert Comments alert but sleepy and need cues to stay awake but able to stay awake during ambulation Gross Range of Motion Lower Extremity ROM Assessment Within Functional Limits Strength Lower Extremity Strength Assessment Right Impaired Hip 3+/5 Knee 3+/5 Coordination Assessment Gross Coordination Gross Coordination WNL Sensation Assessment Sensation Gross Sensation WNL Muscle Tone Muscle Tone WNL Yes M6 PT-IP Treatment Start: 12/20/19 16:39 Freq: NEEDED Status: Active Protocol: Document 12/21/19 13:43 AB (Rec: 12/21/19 15:28 AB [id number]) Physical Therapy Treatment Education Education Provided Precautions,Safety M7 PT-IP Assessment and Plan Start: 12/20/19 16:39 Freq: NEEDED Status: Active Protocol: Document 12/21/19 13:43 AB (Rec: 12/21/19 15:28 AB [id number]) PT Summary Assessment and Plan Potential Rehabilitation Potential Good Summary Impairments Pain,ROM,Strength,Balance, Coordination,Sensation,Bed Mobility,Transfers,Gait, Activity Tolerance Progress Towards Goals Progressing Toward Goals Assessment Summary caregiver training conducted and pt's daughter is able to assist pt safely. pt plans to go home and her daughters will assist her. pt may go home when medically stable. Goals Bed Mobility Goal Standby Assistance Transfer Goal Standby Assistance,Front Wheeled Walker Gait Goal Standby Assistance,Front Wheel Walker Gait Distance 150 Days to Meet Goals 5 Frequency of Treatment Frequency Of Treatment Twice a Day Treatment Plan Physical Therapy Treatment Plan Bed Mobility Training,Transfer Training,Gait Training, Therapeutic Exercise,Balance Retraining,Post Op Education, Discharge Planning,Hot or Cold Pack,Neuromuscular Re-ed, Coordination Retraining Recommendations To Nursing Amount of Assist Needed 1 Person Assist Discharge Recommendations PT Discharge Recommendations Home with Assistance Transportation Needs at Discharge Private Vehicle
[2019-12-21 15:10] VITALS: BP 112/54; PULSE 89; RESP 18; TEMP 36.9; O2SAT 94
[2019-12-21 19:13] VITALS: BP 122/62; PULSE 84; RESP 18; TEMP 37.2; O2SAT 93
[2019-12-21] MEDS: INSULIN DETEMIR 100 UNIT/ML INSULN.PEN 10 UNIT SUBCUT (20:40)
[2019-12-21] MEDS: ATORVASTATIN 20 MG TABLET 40 MG PO (20:40)
[2019-12-21] MEDS: NORTRIPTYLINE 10 MG CAPSULE 20 MG PO (20:42)
[2019-12-21] MEDS: SENNOSIDES 8.6 MG TABLET 17.2 MG PO (20:42)
[2019-12-22] VITALS: BP 101/47; PULSE 88; RESP 16; TEMP 36.5; O2SAT 95
[2019-12-22] MEDS: HYDROCODONE/ACET 5/325 TABLET 1 TAB PO (06:07)
[2019-12-22] MEDS: LEVOTHYROXINE 100 MCG TABLET PO (06:07)
[2019-12-22 06:29] VITALS: BP 129/66; PULSE 91; RESP 16; TEMP 36.4; O2SAT 95
--- NOTE | 2019-12-22 08:32 | PM.PNPO.1 ---
Subjective Subjective Date Patient Seen: 12/22/19 Time Patient Seen: 08:32 Interval history: She has good pain control with Vicodin but it is making her itch. Legs feel fine. She is slowly working with physical therapy and still needing assistance. Exam Vital Signs (past 8 hours): - 12/22/19 06:29 Temperature 97.5 F L Pulse Rate 91 H Respiratory Rate 16 Blood Pressure 129/66 Pulse Oximetry 95 Oxygen Delivery Method Room Air Oxygen Flow Rate 0 Const Orientation: alert and oriented x3 Back/Spine/Pelvis Other: CDI. 5/5 motor both lower extremities. Objective Labs Result Diagrams: 12/21/19 05:28 Assessment & Plan Post-op Postoperative Procedures: Procedures Operation Date: 12/20/19 07:45 Actual Procedures Side Surgeon p L4-5 laminectomy and fusion w/bone graft See Victor MD I am going to try switching her over to tramadol to see if we can stop the itching but still give her good pain relief. Continue to mobilize with physical therapy. Anticipate discharge home probably tomorrow.
[2019-12-22 08:45] VITALS: BP 132/65; PULSE 85; RESP 15; TEMP 35.9; O2SAT 92
--- NOTE | 2019-12-22 08:56 | CM.DPC ---
Addendum entered by Ginger Montgomery R.N. 12/22/19 11:43: Patient has discharge orders. Was able to get in touch with Cookie at [facility], she is aware, and has referral. Faxed DC summary over to [facility], they already have face to face and orders. Original Note: DCP Cont: Dr. Victor came by the care management office and signed a face to face for home health for patient. Spoke to patient and daughter, stated, they think that they used [facility] before when she had her stroke, and can use them again. Left Cookie a message from [facility], faxed face sheet, face to face, orders, H&P, operative report, today's progress note, and P.T. notes. On fax sheet, indicated that patient may possibly discharge this afternoon, if not today, then tomorrow. P: DCP to continue to follow. Plan is home with [facility]. Will need to fax DC summary upon discharge. Ginger Montgomery RN/Director External Communications
[2019-12-22] MEDS: TRAMADOL 50 MG TABLET PO ×2 (09:20→13:23)
[2019-12-22] MEDS: SODIUM CHLORIDE 0.9% FLUSH 10 ML IV (09:20)
[2019-12-22] MEDS: DOCUSATE 100 MG CAPSULE PO (09:20)
[2019-12-22 09:21] VITALS: BP 132/65; PULSE 85
[2019-12-22] MEDS: lisinopriL 20 MG TABLET 40 MG PO (09:21)
[2019-12-22] MEDS: METOPROLOL IR 25 MG TABLET 12.5 MG PO (09:21)
[2019-12-22] MEDS: AMLODIPINE 5 MG TABLET 10 MG PO (09:21)
[2019-12-22] MEDS: CELECOXIB 200 MG CAPSULE PO (09:21)
[2019-12-22] MEDS: PANTOPRAZOLE 20 MG TABLET PO (09:21)
[2019-12-22] MEDS: ACETAMINOPHEN 325 MG TABLET 650 MG PO (09:21)
[2019-12-22] MEDS: glipiZIDE 5 MG TABLET 10 MG PO (09:21)
[2019-12-22] MEDS: INSULIN DETEMIR 100 UNIT/ML INSULN.PEN 10 UNIT SUBCUT (09:22)
[2019-12-22] MEDS: ASPIRIN EC 325 MG TABLET PO (09:22)
--- NOTE | 2019-12-22 10:25 | P.DS_ITS ---
History of Present Illness History of Present Illness Date Patient Seen: 12/22/19 Time Patient Seen: 10:25 Chief complaint: OPB Narrative: Pain is [id number]. Denies fever chills. No nausea vomiting. She has no shortness of breath or chest pain. Her family is home and is available to assist her. Discharge Providers Provider Date of admission: 12/20/19 06:41 Discharge Date: 12/22/19 Primary care physician: Arian Frias MD Consults: 12/20/19 12:13 Consult to Occupational Therapy Evaluate & Treat Comment: Physician Instructions: Evaluate and treat Consult to Physical Therapy Evaluate & Treat Comment: Physician Instructions: Evaluate and Treat 12/22/19 08:46 Consult to Home Health Routine Comment: Reason For Exam: Home Health P.T, O.T. Discharge provider: Brandon Stewart PA-C Summary Hospital Course Discharge Diagnosis: Lumbar stenosis with radiculopathy Lumbar spondylolisthesis Hospital Course: L4-5 laminectomy with microscope L4-5 TLIF (posterior/posterior interbody fusion) with cage L4-5 screws Iliac crest bone graft aspirate Placement of epidural catheter Same procedure as scheduled: Yes Indications: [age] year old female with intractable pain from stenosis. They had failed conservative management and requested operative intervention. Risks and benefits of surgery were discussed and appropriate consents were obtained. Surgeon: See Victor Operation Manager: Fiona Price Anesthesia Type: General Operative Notes Findings: None Closure Type: primary Specimen(s): none sent Prosthetic devices, grafts, tissues, transplants, or devices: NuVasive MAS Reline screws Globus Rise cage Applied: catheter Estimated Blood Loss (mL): 20 Patient admitted to the hospital for the above-mentioned procedure. Patient consented to the same. Patient taken to the operating room underwent L4-L5 patel inectomy, L4-L5 TLIF with cage L4-L5 screws. Patient back in her room recovering well and is in stable condition. Patient is sleepy had some significant itching secondary to Vicodin. Itching has resolved now switching her to tramadol. Her pain is well managed. Patient has assistance at home. S he will discharge home today after physical therapy. Exam Vital Signs (past 8 hours): - 12/22/19 06:29 12/22/19 08:45 12/22/19 09:21 Temperature 97.5 F L 96.7 F L Pulse Rate 91 H 85 85 Respiratory Rate 16 15 Blood Pressure 129/66 132/65 132/65 Pulse Oximetry 95 92 Oxygen Delivery Method Room Air Oxygen Flow Rate 0 Narrative Exam Narrative: 79-year-old female resting comfortably in bedside chair in no a pparent distress. Patient's daughter is in the room during the visit. Lumbar dressing is clean, dry and intact. Motor functions intact distal bilateral lower extremities sensation grossly intact to light touch bilateral lower extremities. Both lower extremities are warm and dry. Objective Labs Result Diagrams: 12/21/19 05:28 Discharge Assessment & Plan Assessment and Plan Assessment: Patient progressing as expected. She will work with physical therapy prior to discharge home today. Patient will be discharged home today in stable condition. Discharge Plan Discharge Plan Patient Disposition: Home Provider Discharge Comment: Follow-up 1.5 weeks Discharge orders & Medications Prescriptions: New tramadol 50 mg Tablet 50 mg PO Q4H PRN (Reason: Pain, Moderate (4-6)) Qty: 30 RF: 0 hydrocodone-acetaminophen 5-325 mg Tablet 1 tab PO Q4HR PRN (Reason: Pain, Moderate (4-6)) Qty: 10 RF: 0 docusate sodium [DOK] 100 mg Capsule 100 mg PO BID PRN (Reason: constipation) Qty: 30 RF: 0 hydroxyzine pamoate 25 mg Capsule 25 mg PO Q4HR PRN (Reason: spasms) Qty: 15 RF: 0 Continued omeprazole 20 mg Tablet,Delayed Release (Dr/Ec) 20 mg PO DAILY RF: 0 clobetasol 0.05 % gel 1 applictn TOP Q OTHER DAY RF: 0 levothyroxine 100 mcg capsule 100 mcg PO DAILY RF: 0 glipizide 10 mg tablet 10 mg PO BID RF: 0 metoprolol tartrate 25 mg tablet 12.5 mg PO BID RF: 0 lisinopril 40 mg tablet 40 mg PO DAILY RF: 0 atorvastatin 40 mg tablet 40 mg PO BEDTIME RF: 0 amlodipine 10 mg tablet 10 mg PO DAILY RF: 0 Levemir FlexTouch U-100 Insuln 100 unit/mL (3 mL) insulin pen 7 - 15 unit SUBCUT BID RF: 0 aspirin 325 mg tablet,delayed release (DR/EC) 325 mg PO DAILY RF: 0 acetaminophen [Tylenol Extra Strength] 500 mg tablet 1,000 mg PO BID RF: 0 nortriptyline 10 mg capsule 20 mg PO BEDTIME Qty: 180 RF: 3 Follow up/Referrals: Arian Frias MD [Primary Care Provider] - Discharge Health Status Multidrug resistant organism: No MDRO Diet/Activity/Treatments Diet: Carb-consistent/Diabetic Activity: Limited bending, twisting, 10 lb maximum lifting Skin/Wound/Dressing Care Report to your healthcare provider any signs of infection, such as:: chills, fe brook, night sweats, increased pain, unusual drainage and unusual redness Dressing: May shower over dressing for the 1st 5 days after surgery. On Tuesday, you may remove the dressing and shower over the incision. Replace with a clean dressing when done Visit Report/Discharge Packet Instructions: DI for Prescription Opioid Use, DI for Transforaminal Lumbar Interbody Fusion Stand Alone Forms: Surgery Discharge Discharge Data Primary Care Provider: Arian Frias
--- NOTE | 2019-12-22 11:01 | PC.NURSE ---
Patient bandaged changed to Coversite dressing. No ss of infection at incision site.
--- NOTE | 2019-12-22 11:43 | OT.IP.TRT ---
Current Diagnoses Spondylolisthesis, lumbar region (12/20/19) Spinal stenosis, lumbar region with neurogenic claudication (12/20/19) Surgery Performed Operation Date: 12/20/19 07:45 Actual Procedures p L4-5 laminectomy and fusion w/bone graft - See Victor MD Occupational Therapy Treatment Note M2 OT-IP Current Condition Start: 12/21/19 12:06 Freq: Status: Active Protocol: Document 12/21/19 12:07 CGR (Rec: 12/21/19 12:37 CGR [email or web address]) Occupational Therapy Current Condition Current Condition Evaluation Date 12/21/19 Treatment Diagnosis L4-5 TLIF Diagnosis Onset Date 12/20/19 Post Operative Precautions Lumbar Precautions Log Roll,No Twisting,Limit Bending,Lifting Restriction of 10 lbs,Gait Belt above Incisional Area M3 OT- IP Subjective and Pain Start: 12/21/19 12:06 Freq: Status: Active Protocol: Document 12/22/19 13:45 CGR (Rec: 12/22/19 13:49 CGR [email or web address]) OT- Subjective Occupational Therapy Visit Type Type Progress Note Visit Start Time 11:20 Visit Stop Time 11:43 Total Visit Minutes 23 Notes Pts daughter present throughout session. OT Pain Assessment Pain When Pain Assessed At Rest Pain Present Pain Present Pain Reported Location Back Scale Used did not rate but states increased pain Management Techniques Distraction,Modification of Treatment,Re-positioning M4 OT- IP ADL's Start: 12/21/19 12:06 Freq: Status: Active Protocol: Document 12/22/19 13:45 CGR (Rec: 12/22/19 13:49 CGR [email or web address]) OT [id number] Comments OT Self-Feeding Comments not meal time OT ADL-Grooming Comments OT Grooming Comments pt declined OT ADL-Oral Care Comments Oral Care Comments pt declined OT ADL-Dressing General Eval Lower Body Dressing Ability Standby Assistance Areas Needing Assistance Retrieving/Set-up of Clothing, Socks Assistive Devices Dressing Assistive Devices Supervising Deputy,Sock Aid Comments OT Dressing Comments Pt educated on use of LB DME and demonstrated understanding by doffing slippers and donning socks without difficulty. OT ADL-Toileting Comments OT Toileting Comments not performed OT ADL-Bathing Comments OT Bathing Comments performed with nursing this am M5 OT- IP IADL's Start: 12/21/19 12:06 Freq: Status: Active Protocol: Document 12/21/19 12:07 CGR (Rec: 12/21/19 12:37 CGR [email or web address]) OT-Instrumental Activities of Daily Living Deficits IADL Deficits Identified No Deficits Home Safety Awareness Awareness of Need for Assistance at Home Good Awareness Ability to Problem Solve Emergency Able to Problem Solve Situations Medication Management Medication Management No Deficits Identified Money Management Money Management No Deficits Identified Meal Preparation Meal Preparation Caregiver Provides Assist Bottle Dealer Bottle Dealer Caregiver Provides Assist Driving Driving Comments Pt understands she should not be driving till MD approves. M6 OT- IP Functional Cognition Start: 12/21/19 12:06 Freq: Status: Active Protocol: Document 12/21/19 12:07 CGR (Rec: 12/21/19 12:37 CGR [email or web address]) Cognitive Factors Limiting Selfcare Function Cognitive Ability Level of Alertness Alert Patient Orientation Name,Age,Birthday,Month,Date, Year,Day of Week,Place, Situation Attention Span Ability Capable of Focused Attention, Capable of Sustained Attention Ability to Follow Commands Able to Follow Multi-Step Commands OT- Vision and Hearing OT- Hearing Assessment OT- Hearing Assessment WFL OT- Vision Assessment Visual Acuity WFL Visual Attentiveness WFL Occular Pursuits WFL Visual Convergence WFL Vision Assessment Comments Pt wears bifocals M7 OT- IP Mobility and Balance Start: 12/21/19 12:06 Freq: Status: Active Protocol: Document 12/21/19 12:07 CGR (Rec: 12/21/19 12:37 CGR [email or web address]) OT-Transfer Assessment Sit to and From Stand Sit to and from Stand Standby Assistance Transfers Transfer Ability Standby Assistance Technique Transfer Destination Chair,Toilet Transfer Technique Stand Step Pivot Devices Transfer Assistive Devices Gait Belt,Front Wheeled Walker Comments Mobility Comments mobility in the room and bathroom OT- Balance Assessment Sitting Balance and Reactions Static Sitting Balance Ability Good Dynamic Sitting Balance Ability Fair M8 OT- IP Objective Assessments Start: 12/21/19 12:06 Freq: Status: Active Protocol: Document 12/21/19 12:07 CGR (Rec: 12/21/19 12:37 CGR [email or web address]) OT Gross Range of Motion Upper Extremity Range of Motion Assessment Within Functional Limits OT Strength Upper Extremity Strength Assessment Within Functional Limits Comments Strength Comments grossly 4/5 OT- Coordination Assessment Upper Extremity Finger to Nose Test Within Functional Limits Finger Tapping Test Within Functional Limits OT-Muscle Tone Assessment Muscle Tone WNL Yes OT Sensation Assessment Edema Edema Absent M9 OT- IP Assessment and Plan Start: 12/21/19 12:06 Freq: Status: Active Protocol: Document 12/22/19 13:45 CGR (Rec: 12/22/19 13:49 CGR [email or web address]) OT Summary Assessment and Plan Potential Rehabilitation Potential Excellent Analytic Complexity at Evaluation Low Summary OT Impairments Pain,Balance,Functional Mobility,Dressing,Toileting, Bathing,Toilet Transfers, Shower Transfers,Activity Tolerance Progress Towards Goals Slow Progress due to Pain Assessment Summary Pt presents as a low complexity evalution s/p admit for L4-5 TLIF. Pt is planned for d/c home with her daughter . Pt particiapted in LB dressing today and given LB dressing DME. pt declined other activities as her pain has increased and pt wants to discharge home [facility]. Goals Dressing Goal Independent,Supervising Deputy,Sock Aid Toileting Goal Independent Bathing Goal Independent,Hand Held Shower Sprayer Toilet Transfer Goal Independent Shower Transfer Goal Independent,Shower Chair Days to Meet Goals 5 Frequency of Treatment Frequency Of Treatment Once a Day Treatment Plan OT Treatment Plan ADL Training,Functional Mobility,Patient/Family Education,Discharge Planning Other Treatment Recommendations and Next shower and LB dressing. Treatment Focus Discharge Recommendations OT Discharge Recommendations Home with Assistance Other Discharge Recommendations Pt plans to discharge home with her daughter. Home Equipment Needs Grab bars in the bathroom. Transportation Needs at Discharge Private Vehicle
--- NOTE | 2019-12-22 11:45 | PT-IP ANOTE ---
Pt refused treatment today. Pt and daughter stated they are comfortable w/ the caregiver training they received yesterday and pt would like to conserve energy for d/c.
[2019-12-22] MEDS: INSULIN ASPART 100 UNIT/ML INSULN PEN SUBCUT (12:14)
[2019-12-22 12:19] VITALS: BP 135/68; PULSE 88; RESP 16; TEMP 36.6; O2SAT 91
--- NOTE | 2019-12-22 12:54 | PC.NURSE ---
Addendum entered by Snow Rosales R.N. 12/22/19 12:58: Patient given extra coversite dressings for incision. Original Note: Patient and daughter educated about incision/dressing, ss/ of infection, new medications, activity, ss of stroke, when to follow up with doctor. Patient and daughter verbalized understanding to patient teaching. Patient has new dressing applied and was taught about showering and when to apply a new dressing. Patient was given paper prescriptions for Docusate sodium, hydrocodone w/ acetaminophen, tramadol and hydroxyzine. Patient left facility via wheelchair to private vehicle with all belongings.
== END 2019-12-22 12:57 | disposition home or self-care (01) | DRG 455 ==
PROVIDERS: Admitting Provider Orthopaedic Surgery; PCP Family Medicine; Referring Provider Family Medicine; Visit Provider Orthopaedic Surgery
PROC: 0SG00AJ Fusion of Lumbar Vertebral Joint with Interbody Fusion Device, Posterior Approach, Anterior Column, Open Approach (ICD-10-PCS; principal; 2019-12-20 07:45)
DX: M48.062 Spinal stenosis, lumbar region with neurogenic claudication (principal); M54.16 Radiculopathy, lumbar region; M43.16 Spondylolisthesis, lumbar region; I10 Essential (primary) hypertension; E11.9 Type 2 diabetes mellitus without complications; Z79.84 Long term (current) use of oral hypoglycemic drugs; L29.9 Pruritus, unspecified; T40.2X5A Adverse effect of other opioids, initial encounter; Z11.59 Encounter for screening for other viral diseases
CPT/HCPCS: 36415; 72100; 76000; 82962; 85014; 85018; 87635; 94762; 97116; 97162; 97165; 97530; 97535; C1776; J0330; J0595; J1100; J1170; J2274; J2405; J2704; J2765; J3010

== ENCOUNTER → 2020-03-13 16:23 | Outpatient (CLI) | payer MEDICARE, SELFPAY ==
[2019-12-20 12:22] VITALS: BMI 33.5
[2020-03-13] MEDS: COVID-19 VACC #1, MRNA(MOD) 100 MCG/0.5 ML VIAL IM (16:29)
== END ==
PROVIDERS: PCP Family Medicine; Visit Provider Internal Medicine
DX: Z23 Encounter for immunization (principal)
CPT/HCPCS: 0011A; 91301

== ENCOUNTER → 2020-04-09 15:36 | Outpatient (CLI) | payer MEDICARE, SELFPAY ==
[2019-12-20 12:22] VITALS: BMI 33.5
[2020-04-09] MEDS: COVID-19 VACC #2, MRNA(MOD) 100 MCG/0.5 ML VIAL IM (15:47)
== END ==
PROVIDERS: PCP Family Medicine; Visit Provider Internal Medicine
DX: Z23 Encounter for immunization (principal)
CPT/HCPCS: 0012A; 91301